=== PATIENT | male | born 1980 | race Two or more races ===

== ENCOUNTER 2020-03-04 23:12 | Emergency (ER) | payer OTHER ==
[~2020-03-04] VITALS: Ht 180.3 cm; Wt 156.5 kg
[2020-03-04 23:14] VITALS: BP 156/108; Ht 180.3 cm; Wt 156.5 kg
== END 2020-03-04 23:40 ==
LOC: ED 23:12
DX: Z02.89 Encounter for other administrative examinations (principal)